=== PATIENT | male | born 1955 | race African-American/Black ===

== ENCOUNTER 2021-03-11 12:04 | Emergency (ER) | payer MEDICAID ==
[~2021-03-11] VITALS: Ht 165.1 cm; Wt 91.0 kg
[2021-03-11] MEDS ORDERED: FLUORESCEIN SODIUM 1MG/STRIP BOTHEYE ONE (13:15)
[2021-03-11] MEDS ORDERED: DEXT15DR5 EACHEYE (14:12)
[2021-03-11] MEDS ORDERED: ERYT1OIN6 EACHEYE (14:12)
[2021-03-11 14:42] VITALS: BP 115/81
== END 2021-03-11 14:42 | disposition home or self-care (01) ==
LOC: ER 12:04
DX: S05.02XA Injury of conjunctiva and corneal abrasion without foreign body, left eye, initial encounter (principal); I10 Essential (primary) hypertension; X58.XXXA Exposure to other specified factors, initial encounter; Y93.89 Activity, other specified; Y92.89 Other specified places as the place of occurrence of the external cause
CPT/HCPCS: 99283; Z7610

== ENCOUNTER 2022-09-05 11:50 | Emergency (ER) | payer MEDICARE, MEDICAID ==
[~2022-09-05] VITALS: Ht 167.6 cm; Wt 81.0 kg
[~2022-09-05 11:50] MED LIST: DEXT15DR5 EACHEYE; ERYT1OIN6 EACHEYE
[2022-09-05 12:08] VITALS: BP 152/89
[2022-09-05] MEDS ORDERED: CYCLOBENZAPRINE 10MG TABLET PO ONE (14:15)
[2022-09-05] MEDS ORDERED: KETOROLAC 30MG/ML VIAL IM ONE (14:15)
[2022-09-05] MEDS ORDERED: NAPR-1176 MT (15:50)
[2022-09-05] MEDS ORDERED: CYCL10TA21 MT (15:50)
== END 2022-09-05 15:00 | disposition home or self-care (01) ==
LOC: ER 11:50
DX: S10.83XA Contusion of other specified part of neck, initial encounter (principal); S20.214A Contusion of middle front wall of thorax, initial encounter; Y04.2XXA Assault by strike against or bumped into by another person, initial encounter; Y93.89 Activity, other specified; Y92.89 Other specified places as the place of occurrence of the external cause; Y99.0 Civilian activity done for income or pay; E78.00 Pure hypercholesterolemia, unspecified; I10 Essential (primary) hypertension; Z87.440 Personal history of urinary (tract) infections
CPT/HCPCS: 71045; 72125; 96372; 99285; J1885

== ENCOUNTER 2023-01-07 09:57 | Emergency (ER) | payer MEDICAID, MEDICARE ==
[~2023-01-07] VITALS: Ht 170.2 cm; Wt 82.0 kg
[~2023-01-07 09:57] MED LIST changes: +CYCL10TA21 MT; +NAPR-1176 MT
[2023-01-07 10:14] VITALS: BP 149/95; PULSE 101; RESP 16; TEMP 98.3; O2SAT 96
== END 2023-01-07 11:53 | disposition home or self-care (01) ==
LOC: ER 11:27
DX: H93.11 Tinnitus, right ear (principal); I10 Essential (primary) hypertension; E78.00 Pure hypercholesterolemia, unspecified
CPT/HCPCS: 99281

== ENCOUNTER 2023-10-01 12:11 | Emergency (ER) | payer MEDICARE, MEDICAID ==
[~2023-10-01] VITALS: Ht 172.7 cm; Wt 91.0 kg
[2023-10-01 12:30] VITALS: O2SAT 98
[2023-10-01] MEDS ORDERED: IBUP-2029 MT (14:49)
[2023-10-01] MEDS ORDERED: BENZ1LOZ73 MT (14:49)
[2023-10-01 15:05] VITALS: BP 128/88; PULSE 76; RESP 16; TEMP 98.7
== END 2023-10-01 15:28 | disposition home or self-care (01) ==
LOC: ER 13:13
DX: J06.9 Acute upper respiratory infection, unspecified (principal); I10 Essential (primary) hypertension; E78.00 Pure hypercholesterolemia, unspecified; Z98.890 Other specified postprocedural states
CPT/HCPCS: 71045; 99283

== ENCOUNTER 2023-12-08 07:07 | Emergency (ER) | payer MEDICARE, MEDICAID ==
[~2023-12-08] VITALS: Ht 170.2 cm; Wt 82.0 kg
[~2023-12-08 07:07] MED LIST changes: +BENZ1LOZ73 MT; +IBUP-2029 MT
[2023-12-08 07:25] VITALS: O2SAT 99
[2023-12-08] MEDS: ACETAMINOPHEN 325MG TABLET PO ONE (08:45)
[2023-12-08] MEDS: IBUPROFEN 400MG TABLET PO ONE (08:45)
[2023-12-08] MEDS: LIDOCAINE 5% PATCH TOP SCH (08:45)
[2023-12-08] MEDS ORDERED: LIDO700A30 TP (11:30)
[2023-12-08] MEDS ORDERED: ACET-2708 MT (11:30)
[2023-12-08 11:36] VITALS: BP 137/84; PULSE 84; RESP 18; TEMP 97.9
[2023-12-08 12:03] LABS: CLARITY URINE CLEAR (CLEAR); COLOR URINE YELLOW (YELLOW); GLUCOSE URINE NEGATIVE (NEGATIVE); KETONES URINE NEGATIVE (NEGATIVE); LEUKOCYTE ESTERASE URINE NEGATIVE (NEGATIVE); NITRITE URINE NEGATIVE (NEGATIVE); OCCULT BLOOD URINE NEGATIVE (NEGATIVE); PH URINE 6.5 (4.5-8.0); PROTEIN URINE NEGATIVE (NEGATIVE); SPECIFIC GRAVITY URINE 1.019 (1.005-1.030)
== END 2023-12-08 11:37 | disposition home or self-care (01) ==
LOC: ER 07:24
DX: M54.9 Dorsalgia, unspecified (principal); E78.00 Pure hypercholesterolemia, unspecified; I10 Essential (primary) hypertension; Z98.890 Other specified postprocedural states
CPT/HCPCS: 74176; 81003; 99284

== ENCOUNTER 2024-06-21 11:28 | Emergency (ER) | payer OTHER ==
[~2024-06-21] VITALS: Ht 170.2 cm; Wt 84.8 kg
[~2024-06-21 11:28] MED LIST changes: +ACET-2708 MT; +LIDO700A30 TP
[2024-06-21 11:30] VITALS: O2SAT 99
[2024-06-21 11:36] VITALS: BP 147/83; TEMP 98.6
[2024-06-21 12:35] LABS: CARBON DIOXIDE 28 mEq/L (21-32); CHLORIDE 104 mEq/L (98-107); POTASSIUM 3.8 mEq/L (3.5-5.1); SODIUM 139 mEq/L (136-145)
[2024-06-21 12:36] LABS: CALCIUM 9.6 mg/dL (8.7-10.4)
[2024-06-21 12:41] LABS: CREATININE 1.1 mg/dL (0.6-1.3); GLUCOSE 122 mg/dL (70-105); HEMATOCRIT. 47.9 % (42.0-52.0); HEMOGLOBIN. 16.8 g/dL (14.0-18.0); MEAN CORPUSCULAR HEMOGLOBIN 30.9 pg (28.0-32.0); MEAN CORPUSCULAR VOLUME 88.4 fL (80.0-94.0); MEAN PLATELET VOLUME 9.1 fl (7.4-10.4); PLATELET 185 x1000/uL (130-400); RED BLOOD CELL COUNT 5.42 mill/uL (4.7-6.1); RED CELL DISTRIBUTION WIDTH 14.4 % (11.6-14.6); UREA NITROGEN BLOOD 14 mg/dL (9-23); WHITE BLOOD COUNT 5.3 x1000/uL (4.5-11.0)
[2024-06-21 12:43] LABS: TROPONIN I HIGH SENSITIVITY 5 ng/L (3.0-53)
[2024-06-21 12:45] LABS: DIFFERENTIAL COMMENT 1
[2024-06-21 12:58] LABS: CLARITY URINE CLEAR (CLEAR); COLOR URINE YELLOW (YELLOW); GLUCOSE URINE NEGATIVE (NEGATIVE); KETONES URINE TRACE (NEGATIVE); LEUKOCYTE ESTERASE URINE NEGATIVE (NEGATIVE); NITRITE URINE NEGATIVE (NEGATIVE); OCCULT BLOOD URINE NEGATIVE (NEGATIVE); PH URINE 5.5 (4.5-8.0); PROTEIN URINE NEGATIVE (NEGATIVE); SPECIFIC GRAVITY URINE 1.024 (1.005-1.030); UROBILINOGEN URINE 0.2 E.U./dL (0.2-1.0)
[2024-06-21] MEDS: PREDNISONE 20MG TABLET PO ONE (13:01)
[2024-06-21] MEDS: IPRATROPIUM/ALBUTEROL 0.5-3(2.5)MG/3ML NEB HHN ONE (13:18)
[2024-06-21 13:22] VITALS: PULSE 92; RESP 16; O2SAT 94
[2024-06-21] MEDS ORDERED: ALBU18HF2 IH (14:07)
[2024-06-21] MEDS ORDERED: P50 MT (14:07)
[2024-06-21] MEDS ORDERED: GUAI-450 MT (14:07)
[2024-06-21 16:51] LABS: PLATELET ESTIMATE NORMAL
[2024-06-21 16:52] LABS: ANISOCYTOSIS 1+
== END 2024-06-21 14:20 | disposition home or self-care (01) ==
LOC: ER 11:42
DX: J44.1 Chronic obstructive pulmonary disease with (acute) exacerbation (principal); E78.00 Pure hypercholesterolemia, unspecified; I10 Essential (primary) hypertension; F17.200 Nicotine dependence, unspecified, uncomplicated; Z96.649 Presence of unspecified artificial hip joint; Z79.899 Other long term (current) drug therapy
CPT/HCPCS: 99284; 94070; 71045; 80048; 81003; 85025; 84484; 36415; 93005; 98960; 94640; 94664; J7512